=== PATIENT | male | born 1955 | race Caucasian/White ===

== ENCOUNTER 2021-02-10 20:09 | Inpatient (IN) | payer MEDICARE ==
[~2021-02-10] VITALS: Ht 190.5 cm; Wt 132.8 kg
[~2021-02-10 20:09] MED LIST: ALDACTAZIDE 251 TAB PO; BUPROPION HYDR150 M4 PO; CARVEDILOL12.5 MG PO; COREG12.5 MG PO; COZAAR100 MG PO; DSS100 MG PO; FERROUS SULFATE65 MG PO; LASIX 20MG TABL20 MG PO; METFORMIN500 MG PO; MULTI VITAMINS1 TAB PO; MULTIPLE VITAMI1 CAP PO; NORVASC 5MG5 MG/TAB PO; OMEGA 31000 MG; OMEPRAZOLE D/R20 MG PO; PERCOCET 325 MG1 TA2 PO; PERCOCET 325 MG1 TAB PO; POTASSIUM CL 220 MEQ PO; PRILOSEC 20MG20 MG PO; PROZAC 20MG20 MG PO; PROZAC10 MG PO; WELLBUTRIN XL150 M1 PO
[2021-02-11] VITALS (616 sets, daily range): BP systolic 120–149; BP diastolic 65–93; PULSE 76–98; TEMP 98.2–98.8; O2SAT 81–100
--- NOTE | 2021-02-11 01:15 | NUR ---
Pt arrived to ICU room 8 via cart with EMS. Pt transferred from the cart to the ICU bed with the assistance of 4. Pt repositioned in the bed and he denies needs. Call light within reach.
[2021-02-11] MEDS ORDERED: BETAPACE 80MG80 MG PO (02:32)
[2021-02-11] MEDS ORDERED: XARELTO20 MG PO (02:32)
[2021-02-11] MEDS ORDERED: PRIL40 PO (02:33)
[2021-02-11] MEDS ORDERED: COLACE 100100 MG/CAP PO (02:33)
[2021-02-11] MEDS ORDERED: MELATONIN5 M1 SL (02:33)
[2021-02-11] MEDS ORDERED: FLOMAX 0.40.4 MG/CAP PO (02:33)
[2021-02-11 02:38] LABS: HEMATOCRIT 37.3 % (42.0-52.0); HEMOGLOBIN 11.8 g/dl (13.5-18.0); MEAN CELL VOLUME 95 fl (80.0-100.0); MEAN CORPUSCULAR HEMOGLOBIN 30 pg (27.0-31.0); MEAN CORPUSCULAR HGB CONC 32 g/dl (33.0-37.0); MEAN PLATELET VOLUME 12.4 fl (7.4-10.4); PLATELET COUNT 114 K/mm3 (130-400); RED BLOOD COUNT 3.93 M/mm3 (4.20-5.60); REDCELL DISTRIBUTION WIDTH-CV 12.7 % (11.5-14.5)
[2021-02-11 02:54] LABS: ALANINE AMINOTRANSFERASE 15 U/L (4-49); ALBUMIN 3.2 gm/dL (3.5-5.0); ALKALINE PHOSPHATASE 97 U/L (50-136); ANION GAP 6 mmol/L (7-16); AST,SGOT 35 U/L (15-37); BILIRUBIN,TOTAL 0.6 mg/dL (0.0-1.0); BLOOD UREA NITROGEN 18 mg/dL (9-20); CALCIUM 10.5 mg/dL (8.4-10.2); CARBON DIOXIDE 30 mmol/L (22-30); CHLORIDE 106 mmol/L (98-107); CREATININE, serum 1.09 (0.66-1.25); GLUCOSE 114 mg/dL (74-106); MAGNESIUM 1.8 mg/dL (1.6-2.3); SODIUM 142 mmol/L (137-145); TOTAL PROTEIN 8.5 gm/dL (6.4-8.2)
[2021-02-11 02:55] LABS: LYMPHOCYTE 2 % (20.0-51.0); NEUTROPHILS 98 % (42.0-75.2)
[2021-02-11 02:56] LABS: HYPOCHROMIA 2+; PLATELET ESTIMATE DECREASED (NORMAL)
[2021-02-11 02:58] LABS: ALCOHOL(ethanol),MEDICAL < 10 mg/dL
[2021-02-11 03:07] LABS: TROPONIN-I < 0.012 ng/mL (0.000-0.035)
[2021-02-11 03:39] LABS: COLLECTION METHOD IN
[2021-02-11 03:45] LABS: MUCOUS Present /lpf; PH 6 (5-8); SQUAMOUS EPITHELIAL 0-2 /hpf; URINE APPEARANCE Clear; URINE BACTERIA None Seen /hpf; URINE BILIRUBIN Negative (NEGATIVE); URINE BLOOD 3+ (NEGATIVE); URINE COLOR Yellow; URINE GLUCOSE Negative (NEGATIVE); URINE KETONE Negative (NEGATIVE); URINE LEUKOCYTE ESTERASE 1+ (NEGATIVE); URINE NITRATE Negative (NEGATIVE); URINE PROTEIN(semi-quant) Negative (NEGATIVE); URINE RBC 20-50 /hpf; URINE UROBILINOGEN Negative (NEGATIVE)
--- NOTE | 2021-02-11 06:33 | NUR ---
Vancomycin Initial Dosing Pharmacy Note Ordering provider: Yuko Kamara E., DO Indication/duration: Empiric coverage, acute respiratory failure Relevant comorbidities: Numerous co-morbidities, obesity LABS: eCrCl > 100 mL/min Recommendation: Loading dose: 2 grams given on admission Maintenance dose: 1.5 grams every 12 hours starting 5 hours after load due to patient's weight Trough goal: 15-20 ug/mL Pharmacy will continue to follow.
--- NOTE | 2021-02-11 07:27 | NUR ---
Bedside shift report given to PERRI Rosas.
[2021-02-11 10:10] LABS: ARTERIAL BLD GAS O2 SATURATION 93.2 % (92-100); ARTERIAL BLD GAS TCO2 CT 27.1; ARTERIAL BLOOD GAS BASE EXCESS 0.9 (-2-2); ARTERIAL BLOOD GAS HCO3 25.8 meq/L (22-26); ARTERIAL BLOOD GAS pH 7.41 (7.35-7.45)
--- NOTE | 2021-02-11 16:14 | NUR ---
The patient is a PUI. Dry Cure Worker contacted the patient's daughter, Eli #[phone] to complete intake. The patient lives alone in [place]. The patient's son and [id number] live nearby. The patient has a motorized wheelchair and walker. The patient recently left (last Tuesday) post acute rehab at [facility]. The patient does not have advanced directives in the EMR but Eli states they are complete and designate her. Eli to fax DPOA-HC to the ICU fax. The patient's nurse knows to check for the fax. The plan is for the patient to go to post acute rehab. Eli would like to send referrals to [facility] and [facility]. She states that [facility] has declined in the past. Referrals sent. Eli states that they would consider transitioning to LTC. SW discussed applying for Medicaid. The patient owns land and they think he would not qualify. Insurance Advisor will continue to follow to ensure the safest discharge disposition. Discharge disposition: SNF. Referrals sent to [facility] and [facility]. Awaiting Screens.
[2021-02-11 18:37] LABS: PROCALCITONIN 0.06 ng/mL (0.00-0.09)
[2021-02-11 18:42] LABS: FOLATE (FOLIC ACID) 11.2 ng/mL (7.0-31.4)
--- NOTE | 2021-02-11 21:20 | NUR ---
Assessment complete and charted. Patient on 4 liters nasal cannula. Pupils unequal and reactive. Denies needs. Call light in reach. Held colace for diarrhea.
--- NOTE | 2021-02-11 21:30 | NUR ---
Report called to PERRI Yip
--- NOTE | 2021-02-11 21:45 | NUR ---
Patient transferred to medical floor.
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
[2021-02-12 04:38] VITALS: BP 121/85; PULSE 75; TEMP 97.4
--- NOTE | 2021-02-12 06:12 | NUR ---
Patient seemed less confused this morning. He is currently on 4L and oxygen saturation is the high 90's. He has no complaints.
[2021-02-12 06:35] LABS: BASO % 0.1 % (0.0-2.0); GRAN # 5.9 (1.4-6.5); GRAN % 77.2 % (42.2-75.2); HEMOGLOBIN 11.2 g/dl (13.5-18.0); LYMPH # 0.7 (1.2-3.4); LYMPH % 9.2 % (20.0-51.0); MEAN CELL VOLUME 95 fl (80.0-100.0); MEAN CORPUSCULAR HEMOGLOBIN 30 pg (27.0-31.0); MEAN CORPUSCULAR HGB CONC 32 g/dl (33.0-37.0); MEAN PLATELET VOLUME 11.7 fl (7.4-10.4); MONO % 13.2 % (1.7-9.3)
[2021-02-12 06:53] LABS: ALBUMIN 2.9 gm/dL (3.5-5.0); BILIRUBIN,TOTAL 0.6 mg/dL (0.0-1.0); CALCIUM 10.5 mg/dL (8.4-10.2); CREATININE, serum 0.72 (0.66-1.25); POTASSIUM 3.4 mmol/L (3.4-5.0); TOTAL PROTEIN 7.6 gm/dL (6.4-8.2)
[2021-02-12 07:52] LABS: HEMATOCRIT 35.1 % (42.0-52.0)
[2021-02-12 07:53] LABS: PLATELET COUNT 115 K/mm3 (130-400)
[2021-02-12 08:00] VITALS: BP 155/93; PULSE 92; TEMP 97.4
--- NOTE | 2021-02-12 08:28 | NUR ---
PATIENT AM MEDICATIONS GIVEN. PHYSICAL THERAPIST IN ROOM WITH PATIENT ASSISTING THEM TO THE COMMODE. PATIENT REPORTING GENERALIZED BODY PAIN AND IS REQUESTING PAIN MEDICATION. OPEN AREA ON OVER COCCYX. DESENEX POWDER APPLIED TO KEO AREA. WILL CONTINUE TO MONITOR.
--- NOTE | 2021-02-12 10:55 | NUR ---
AM SHIFT ASSESSMENT COMPLETED AT THIS TIME. PRN PO TYLENOL GIVEN FOR GENERALIZED BODY PAIN. IV ANTIBIOTICS INFUSING. WILL CONTINUE TO MONITOR.
[2021-02-12 12:06] VITALS: BP 121/76; PULSE 77; TEMP 97.9
--- NOTE | 2021-02-12 15:55 | NUR ---
LEFT AC INT DISCONTINUED DUE TO LEAKING. TIP INTACT. PATIENT TOLERATED WELL. PATIENT DENYING PAIN AT THIS TIME. CALL LIGHT IN REACH. BED ALARM ON.
[2021-02-12 16:00] VITALS: BP 130/81; PULSE 76; TEMP 97.9
--- NOTE | 2021-02-12 16:21 | NUR ---
went back to see patient three times and was unavailble all three times
--- NOTE | 2021-02-12 16:41 | NUR ---
[facility] Consultant followed up with [facility] Both declined referral. [facility] cannot take admissions at this time due to a positive COVID in the building. SW followed up with patient's daughter, Eli who is agreeable to have referrals sent to [facility], and [facility].
--- NOTE | 2021-02-12 18:31 | NUR ---
PATIENT RESTING IN ROOM. WILL REPORT OFF TO ONCOMING NURSE.
[2021-02-12 19:15] VITALS: BP 117/72; PULSE 76; TEMP 97.8
--- NOTE | 2021-02-12 21:29 | NUR ---
PT SETTING UP IN BED WATCHING TV. RATES HEADACHE A 5/10, TYL GIVEN ALONG W PM MEDS. IV FLUSHED. ASSESSMENT AND POC DISCUSSED. PT V/U. NEEDS MET
--- NOTE | 2021-02-12 21:36 | NUR ---
UPDATED PT DAUGHTER SHRUTI ON PT STATUS. WILL STOP BY TO VISIT HIM TOMORROW.
[2021-02-12 23:35] VITALS: BP 117/75; PULSE 84; TEMP 97.9
[2021-02-13 04:01] VITALS: BP 121/73; PULSE 72; TEMP 97.8
--- NOTE | 2021-02-13 05:02 | NUR ---
PT RESTED THROUGH MOST OF THE NIGHT DID HAVE SOME INTERMITTENT CONFUSION. NPO NOW FOR TEST THIS AM, ANTICIPATE LP AND THORACENTES. IV ANTIBOTIC/PO MED GIVEN W SIP THIS AM. NEEDS MET.
[2021-02-13 06:24] LABS: EOS % 0.2 % (0-4.0); GRAN # 5.2 (1.4-6.5); GRAN % 79.6 % (42.2-75.2); HEMOGLOBIN 11.6 g/dl (13.5-18.0); LYMPH # 0.5 (1.2-3.4); LYMPH % 8.3 % (20.0-51.0); MEAN CELL VOLUME 95 fl (80.0-100.0); MEAN CORPUSCULAR HEMOGLOBIN 30 pg (27.0-31.0); MEAN CORPUSCULAR HGB CONC 32 g/dl (33.0-37.0); MEAN PLATELET VOLUME 12.2 fl (7.4-10.4); MONO # 0.8 (0.1-0.6); MONO % 11.6 % (1.7-9.3); PLATELET COUNT 91 K/mm3 (130-400); RED BLOOD COUNT 3.81 M/mm3 (4.20-5.60); REDCELL DISTRIBUTION WIDTH-CV 12.9 % (11.5-14.5)
[2021-02-13 06:29] LABS: HEMATOCRIT 36.3 % (42.0-52.0)
[2021-02-13 06:31] LABS: CALCIUM 10.6 mg/dL (8.4-10.2); CREATININE, serum 0.67 (0.66-1.25); POTASSIUM 3.9 mmol/L (3.4-5.0)
[2021-02-13 06:38] LABS: INR 1.2 (0.8-3.0); PROTHROMBIN TIME 13.6 SECONDS (9.7-12.8)
--- NOTE | 2021-02-13 06:40 | NUR ---
appears to be sleeping, bedside shift report received from PERRI lópez
--- NOTE | 2021-02-13 08:00 | NUR ---
appears to be sleeping, awakens easily and is alert and oreinted this am times 3, full assessment completed, see interventions for further info, has desitin to anant and it appears dry at this time, will complete hygiene in a short while, have ordered his breakfast as the one he has is now cold, he denies needs, cardiopulmonary in to complete breathing treatment
[2021-02-13 08:05] VITALS: BP 123/74; PULSE 75; TEMP 98.1
--- NOTE | 2021-02-13 09:29 | NUR ---
Dr Martinez and care team was in to see patient, he was assisted up to bathroom and had bowel movement, now radiologist in to perform thoracentesis
--- NOTE | 2021-02-13 10:15 | NUR ---
thoracentesis completed and he tolerated well, he is sitting up on side of bed, am hygiene provided, then assisted back into bed and will now have breakfast, denies other needs
[2021-02-13 10:45] LABS: GLUCOSE,PLEURAL FLUID 122 mg/dL; TOTAL PROTEIN,PLEURAL FLUID 2.8 gm/dL
[2021-02-13 10:49] LABS: PLEURAL FLUID RBC 16000 /mm3 (0-0); PLEURAL FLUID WBC 710 /mm3
[2021-02-13 10:56] LABS: PLEURAL FLUID APPEARANCE CLOUDY; PLEURAL FLUID COLOR AMBER
--- NOTE | 2021-02-13 11:43 | NUR ---
physical therapy in and worked with patient and he is up in recliner and ready for lunch
--- NOTE | 2021-02-13 12:07 | NUR ---
back into bed and AIV will start PICC
--- NOTE | 2021-02-13 12:46 | NUR ---
he is just mpw sitting up in bed eating lunch, AIV service nurse will return and place PICC when he is finished
[2021-02-13 12:51] VITALS: BP 125/75; PULSE 75; TEMP 98
--- NOTE | 2021-02-13 13:45 | NUR ---
PICC has been placed with chest xray confirmation and good blood return, Vancomycin started
--- NOTE | 2021-02-13 15:06 | NUR ---
[employer] faxed referrals to [facility], [facility], and [facility]. SW contacted each facility regarding referral. Nuvia from [facility] reports they will not be able to review the referral until Tuesday.
--- NOTE | 2021-02-13 15:23 | NUR ---
to CT per WC
--- NOTE | 2021-02-13 16:00 | NUR ---
returned from CT scan per WC, assisted up to bathroom and had large semi formed bronw bowel movement, assisted then to bed, has open areas to both side of buttocks and pink aquafoam dressing placed, denies needs, is talking about things I don't understand at this time but is oriented times 3, speech therapy in to work with patient
[2021-02-13 16:17] VITALS: BP 131/72; PULSE 74; TEMP 97.4
--- NOTE | 2021-02-13 18:44 | NUR ---
bedside shift report given to PERRI Buckley
[2021-02-13 20:41] VITALS: BP 119/77; PULSE 69; TEMP 97.4
[2021-02-14] VITALS (7 sets, daily range): BP systolic 106–118; BP diastolic 60–90; PULSE 51–76; TEMP 97.2–97.7
--- NOTE | 2021-02-14 04:37 | NUR ---
Pt was up most of the night watching tv. rested periodically without incident. victor cath remains in place. Rt upper picc. Neuro intact. Remains on contact precautions. Needs met.
[2021-02-14 06:13] LABS: BASO % 0.3 % (0.0-2.0); EOS # 0.3 (0.0-0.7); EOS % 3.7 % (0-4.0); GRAN # 4.5 (1.4-6.5); GRAN % 67.2 % (42.2-75.2); HEMOGLOBIN 11.3 g/dl (13.5-18.0); LYMPH # 0.9 (1.2-3.4); LYMPH % 13.5 % (20.0-51.0); MEAN CELL VOLUME 94 fl (80.0-100.0); MEAN CORPUSCULAR HEMOGLOBIN 30 pg (27.0-31.0); MEAN CORPUSCULAR HGB CONC 32 g/dl (33.0-37.0); MEAN PLATELET VOLUME 11.8 fl (7.4-10.4); PLATELET COUNT 127 K/mm3 (130-400); RED BLOOD COUNT 3.77 M/mm3 (4.20-5.60); REDCELL DISTRIBUTION WIDTH-CV 12.8 % (11.5-14.5)
[2021-02-14 06:23] LABS: ALBUMIN 2.8 gm/dL (3.5-5.0); BILIRUBIN,TOTAL 0.6 mg/dL (0.0-1.0); CALCIUM 10.1 mg/dL (8.4-10.2); CREATININE, serum 0.64 (0.66-1.25); POTASSIUM 3.8 mmol/L (3.4-5.0); TOTAL PROTEIN 7.1 gm/dL (6.4-8.2)
[2021-02-14 06:25] LABS: HEMATOCRIT 35.5 % (42.0-52.0)
--- NOTE | 2021-02-14 20:00 | NUR ---
Assessment complete. Patient is alert and oriented; HR irregular with normal heart sounds; Lungs clear in upper lobes and fine crackles in bases. Right thora site covered with bandaid with no signs of bleeding. Bilateral lower extremities are discolored and excoriated and are edematous. A stage II pressure ulcer is noted on patient's coccyx and a new mepilex is applied. Patient walks to bathroom with SBA and walker. Santos in place, draining yellow urine. Patient has no complaints of pain. Will continue to monitor.
[2021-02-15 02:59] VITALS: BP 114/66; PULSE 69; TEMP 97.7
[2021-02-15 06:01] LABS: BASO # 0.1 (0.0-0.2); BASO % 0.7 % (0.0-2.0); EOS # 0.8 (0.0-0.7); EOS % 11.1 % (0-4.0); GRAN # 4.1 (1.4-6.5); LYMPH # 1.2 (1.2-3.4); MEAN CELL VOLUME 95 fl (80.0-100.0); MEAN CORPUSCULAR HEMOGLOBIN 29 pg (27.0-31.0); MEAN CORPUSCULAR HGB CONC 31 g/dl (33.0-37.0); MEAN PLATELET VOLUME 11.8 fl (7.4-10.4); MONO # 1.2 (0.1-0.6); MONO % 15.8 % (1.7-9.3); RED BLOOD COUNT 3.74 M/mm3 (4.20-5.60); REDCELL DISTRIBUTION WIDTH-CV 12.8 % (11.5-14.5)
[2021-02-15 06:08] LABS: HEMATOCRIT 35.5 % (42.0-52.0)
[2021-02-15 06:10] LABS: CALCIUM 9.9 mg/dL (8.4-10.2); CREATININE, serum 0.66 (0.66-1.25); MAGNESIUM 1.6 mg/dL (1.6-2.3); POTASSIUM 3.8 mmol/L (3.4-5.0)
[2021-02-15 06:32] LABS: PLATELET COUNT 94 K/mm3 (130-400)
[2021-02-15 07:22] VITALS: BP 112/67; PULSE 78; TEMP 98
--- NOTE | 2021-02-15 08:37 | NUR ---
Patient drowsy this morning, breakfast at bedside, he stated he will take medications now and will eat later after he sleeps a little longer. Vital signs are stable, heart sounds normal with regular rate and rhythm. Patient denies SOB or any pain. Hand engraver seals equal bilaterally, lower extremities exhibit redness and warmth, a normal finding for patient. 1+ pitting edema. Blood sugar level 72, sliding scale insulin not indicated. Patient denies any questions or concerns at this time, will continue to monitor.
[2021-02-15 11:36] VITALS: BP 110/55; PULSE 63; TEMP 98
[2021-02-15 16:59] VITALS: BP 124/68; PULSE 75; TEMP 98.1
[2021-02-15 18:52] VITALS: BP 119/64; PULSE 70; TEMP 97.4
--- NOTE | 2021-02-15 19:00 | NUR ---
Received report from Henok. Patient awake in bed. He states that he thinks his victor catheter is leaking. Upon checking, his chucks are wet but victor catheter still intact and urine flowing good in the tubing. Changed chucks and repositioned patient. Will observe if it will happen again.
--- NOTE | 2021-02-15 21:05 | NUR ---
Patient's blood glucose is 85mg/dl. Provided him with sandwich box. He is on O2 at 2lpm via NC. He denies pain. Santos catheter draining clear, yellow urine. He is alert and oriented.
[2021-02-15 23:16] VITALS: BP 106/62; PULSE 71; TEMP 97.4
--- NOTE | 2021-02-16 00:32 | NUR ---
Patient called saying he thinks he's not getting enough oxygen. He is currently at 2L via nasal cannula. SpO2 at 91-92%. RT says patient will have breathing treatment at 2am and that he was at O2 4lpm yesterday. Increased O2 to 3lpm and after few minutes he states he feels much better. SPO2 at 95%.
[2021-02-16 03:05] VITALS: BP 120/67; PULSE 67; TEMP 97.5
--- NOTE | 2021-02-16 06:24 | NUR ---
Maintained patient on O2 at 3lpm via NC. He was able to sleep after his breathing treatment. Santos catheter draining adequate urine output. No bowel movement last night.
--- NOTE | 2021-02-16 07:10 | NUR ---
Report with PERRI Westfall. Pt resting in bed with eyes closed, resp even and unlabored. Call light in reach.
--- NOTE | 2021-02-16 08:00 | NUR ---
Assessment complete. Pt resting in bed, awake but drowsy, oriented x 3, denies pain but reports slight ache in abdomen. Edema to bilat lower ext. O2 at 3 L/min via NC. PICC to right upper arm without s/s of complications. Pt reports feeling tired, denies further needs. Call light in reach.
[2021-02-16 08:06] LABS: BASO # 0.1 (0.0-0.2); BASO % 0.9 % (0.0-2.0); EOS # 0.9 (0.0-0.7); EOS % 13.1 % (0-4.0); GRAN # 4.1 (1.4-6.5); GRAN % 58.1 % (42.2-75.2); HEMOGLOBIN 11.1 g/dl (13.5-18.0); LYMPH % 14.6 % (20.0-51.0); MEAN CELL VOLUME 94 fl (80.0-100.0); MEAN CORPUSCULAR HEMOGLOBIN 29 pg (27.0-31.0); MEAN CORPUSCULAR HGB CONC 31 g/dl (33.0-37.0); MEAN PLATELET VOLUME 11.8 fl (7.4-10.4); MONO # 0.9 (0.1-0.6); MONO % 12.9 % (1.7-9.3); RED BLOOD COUNT 3.77 M/mm3 (4.20-5.60); REDCELL DISTRIBUTION WIDTH-CV 12.8 % (11.5-14.5)
[2021-02-16 08:17] LABS: CALCIUM 10.2 mg/dL (8.4-10.2); CREATININE, serum 0.67 (0.66-1.25); POTASSIUM 3.8 mmol/L (3.4-5.0)
[2021-02-16 08:20] LABS: HEMATOCRIT 35.5 % (42.0-52.0)
[2021-02-16 08:21] LABS: PLATELET COUNT 98 K/mm3 (130-400)
--- NOTE | 2021-02-16 08:57 | NUR ---
Ruchi from [facility] reports they cannot meet the patient's needs.
[2021-02-16 09:16] VITALS: BP 128/76; PULSE 78; TEMP 97.9
[2021-02-16 12:10] VITALS: BP 132/78; PULSE 68; TEMP 97.5
--- NOTE | 2021-02-16 13:34 | NUR ---
Pt. pleasant, sitting upright in bed. Explains to nurse he is feeling discomfort and mild pain to epigastric region. Pt. states "will wait to see if it goes away". Nurse informed pt. to call for any needs. Call light within reach. Will continue to monitor.
--- NOTE | 2021-02-16 14:36 | NUR ---
The PA notified SW that the patient may be able to d/c tomorrow. GRANT contacted [facility] to submit for pre-auth. [facility] reports that they cannot find the patient and it looks like they do not manage the patient's plan. She states that some plans are not managed by [facility] yet. GRANT attempted to follow up with Yesenia at [facility] about referral. GRANT left her a voicemail and faxed over updates. GRANT contacted Nuvia at [facility] in [place]. Nuvia reports that their DON is now reviewing the referral to make sure they can meet the patient's needs.
--- NOTE | 2021-02-16 15:32 | NUR ---
SW contacted and updated the patient's daughter, Eli. Eli was agreeable for GRANT to send referrals to [facility] and [facility]. GRANT contacted and faxed a referral to both facilities. Awaiting screens.
[2021-02-16 16:00] VITALS: BP 120/70; PULSE 71; TEMP 97.5
--- NOTE | 2021-02-16 18:38 | NUR ---
Pt. sitting in bed, alert and oriented x4, currently states he is not feeling any pain. SCD's on patient. Santos catheter DC'd, pt. tolerated it well w/o complications expressed. Pt. states "he would like more to eat", nurse explained heart healthy diet and carb limitations. Pt. confirms and understands diet. Pt. expresses no additional needs at this time. Call light within reach. Nurse reminded pt. to call to transfer.
[2021-02-16 21:32] VITALS: BP 111/67; PULSE 68; TEMP 97.6
[2021-02-16 23:52] VITALS: BP 114/67; PULSE 62; TEMP 97.7
--- NOTE | 2021-02-17 01:14 | NUR ---
2100- ASSESSMENT COMPLETE. PT C/O ENRIQUEZ, TYL GIVEN. PM MEDS REVIEWED. RATES PAIN /. RT UPPER PICC FLUSHED, GOOD BLOOD RETURN. TELE, O2. LEESA PEREZ TODAY, URINAL. POC DISCUSSED. NEEDS MET.
[2021-02-17 03:39] VITALS: BP 111/56; PULSE 67; TEMP 97.2
--- NOTE | 2021-02-17 05:30 | NUR ---
RESTEDT THROUGH THE NIGHT WO INCIDENT.
[2021-02-17] MEDS ORDERED: VITAMIN D31000 I1 PO (07:50)
[2021-02-17 08:16] LABS: BASO % 0.6 % (0.0-2.0); EOS # 0.9 (0.0-0.7); EOS % 12.2 % (0-4.0); GRAN % 57.1 % (42.2-75.2); HEMATOCRIT 37.5 % (42.0-52.0); HEMOGLOBIN 11.4 g/dl (13.5-18.0); LYMPH # 1.1 (1.2-3.4); LYMPH % 15.9 % (20.0-51.0); MEAN CELL VOLUME 97 fl (80.0-100.0); MEAN CORPUSCULAR HEMOGLOBIN 29 pg (27.0-31.0); MEAN CORPUSCULAR HGB CONC 30 g/dl (33.0-37.0); MEAN PLATELET VOLUME 11.4 fl (7.4-10.4); MONO % 13.9 % (1.7-9.3); PLATELET COUNT 105 K/mm3 (130-400); RED BLOOD COUNT 3.88 M/mm3 (4.20-5.60); REDCELL DISTRIBUTION WIDTH-CV 12.7 % (11.5-14.5)
[2021-02-17 08:29] LABS: CALCIUM 10.6 mg/dL (8.4-10.2); CREATININE, serum 0.79 (0.66-1.25); POTASSIUM 4.1 mmol/L (3.4-5.0)
[2021-02-17 08:31] VITALS: BP 129/66; PULSE 75; TEMP 98.4
--- NOTE | 2021-02-17 09:46 | NUR ---
Patient alert and oriented, breakfast arrived but stated will eat after PT works with him. Patient able to turn self and somewhat boost himself in bed, exhibiting some weakness in lower extremities. Patient has Stage II pressure ulcer on coccyx, with dressing on it. Patient's heart sounds regular rate and rhythm. Patient experienced SOB on exertion when PT tried to get him up. Breath sounds clear upon auscultating. Denies pain and discomfort at this time, no questions and concerns, waiting on placement, will continue to monitor.
[2021-02-17 12:43] VITALS: BP 130/65; PULSE 77; TEMP 98.3
--- NOTE | 2021-02-17 15:23 | NUR ---
Yesenia, at [facility], contacted GRANT for more questions. GRANT answered Yesenia's questions. Yesenia requested a copy of the patient's insurance card. GRANT faxed the card to Yesenia. Arlyn, at [facility], contacted GRANT with more questions about the patient. GARNT answered her questions. Arlyn plans to update her team and states that she will contact GRANT later with an answer.
--- NOTE | 2021-02-17 15:51 | NUR ---
Yesenia, at [facility], reports that they are able to accept the patient for a skilled stay tomorrow and would be able to pick him up between [id number]. GRANT contacted and updated the patient's daughter, Eli. Eli is in agreement with the patient going to [facility] [place]. GRANT updated the patient. He is also agreeable to going to [facility] [place]. GRANT presented and read the IM form outloud to the patient. The patient verbalized understanding and gave SW approval to sign the form on his behalf. GRANT updated the patient's PA. GRANT attempted to update Dhara at [facility]. GRANT left her a voicemail. GRANT updated Nuvia at [facility].
[2021-02-17] MEDS ORDERED: AMPICILLIN AND1 PD3 IV (16:02)
[2021-02-17 16:17] VITALS: BP 97/53; PULSE 60; TEMP 98.5
--- NOTE | 2021-02-17 17:36 | NUR ---
Patient resting in bed. VSS IV CDI. Care provided by Jem, student nurse. Call light within reach
--- NOTE | 2021-02-17 17:55 | NUR ---
Patient resting in bed with tv on. Rapid COVID swab resulted negative. VSS, 3L NC O2, no reported SOB. PICC SUZETTE CDI. Denies pain and discomfort, no concerns at this time. Patient may discharge tomorrow. Call light within reach.
[2021-02-17 19:13] VITALS: BP 105/71; PULSE 64; TEMP 98.1
--- NOTE | 2021-02-17 21:42 | NUR ---
PT ALERT AND OX4 ONCE AWAKE. FEELING SLEEPY THIS EVENING. HAS NOT BEEN SLEEPING MUCH PER PT LAST FEW NIGHTS. ASSESSMENT AND POC DISCUSSED. PM MEDS GIVEN ALONG W MELATONIN. USING URINAL. CALL LIGHT WI REACH. BLOOD SUGARS REMAINS STABLE. ANTCIPATES DC TOMORROW TO [facility]. NEEDS MET.
[2021-02-17 23:29] VITALS: BP 116/64; PULSE 62; TEMP 97.2
[2021-02-18 04:24] VITALS: BP 117/73; PULSE 64; TEMP 97.1
--- NOTE | 2021-02-18 05:38 | NUR ---
RESTED THROUGH THE NIGHT WO INCIDENT. NEEDS MET.
[2021-02-18 07:23] LABS: CALCIUM 10.4 mg/dL (8.4-10.2); CREATININE, serum 0.82 (0.66-1.25); MAGNESIUM 2.1 mg/dL (1.6-2.3); POTASSIUM 4.2 mmol/L (3.4-5.0)
[2021-02-18 07:39] LABS: BASO % 0.6 % (0.0-2.0); EOS # 0.7 (0.0-0.7); EOS % 10.6 % (0-4.0); GRAN # 4.1 (1.4-6.5); GRAN % 61.5 % (42.2-75.2); HEMOGLOBIN 10.1 g/dl (13.5-18.0); LYMPH % 14.7 % (20.0-51.0); MEAN CELL VOLUME 96 fl (80.0-100.0); MEAN CORPUSCULAR HEMOGLOBIN 30 pg (27.0-31.0); MEAN CORPUSCULAR HGB CONC 32 g/dl (33.0-37.0); MEAN PLATELET VOLUME 10.9 fl (7.4-10.4); MONO # 0.8 (0.1-0.6); MONO % 12.3 % (1.7-9.3); RED BLOOD COUNT 3.34 M/mm3 (4.20-5.60); REDCELL DISTRIBUTION WIDTH-CV 12.9 % (11.5-14.5)
[2021-02-18 07:43] LABS: PLATELET COUNT 101 K/mm3 (130-400)
[2021-02-18 08:26] VITALS: BP 121/70; PULSE 65; TEMP 97.5
--- NOTE | 2021-02-18 09:00 | NUR ---
Assessment complete. Pt sitting up in bed, A&O x 4, denies pain or c/o at this time. O2 at 3 L/min via NC. Stage II to coccyx with dressing CDI. PICC to right upper arm without s/s of complications. POC for discharge reviewed with pt. Call light in reach.
[2021-02-18] MEDS ORDERED: CUBICIN 500MG500 MG IV (10:12)
--- NOTE | 2021-02-18 11:11 | NUR ---
The patient is ready to d/c today. He will need IV Unasyn until 02/24. The frequency is every 6 hours. GRANT followed up with Viviane at [facility] to confirm that they are okay with his. Viviane reports that they would not be able to do every 6 hours and would need something at least twice a day. GRANT notified the clinical team. ID recommended IV Dapto, once a day. GRANT notified Viviane at [facility]. Viviane reports that they would be able to do the IV Dapto. The patient is to discharge today, 02/18, to [facility] for a skilled stay. Transportation was scheduled around [id number], via [place]. GRANT informed the patient, his RN, and the patient's daughter (Eli) over the phone. They were all agreeable to the time. No additional needs at this time.
--- NOTE | 2021-02-18 11:27 | NUR ---
Pt discharged to [facility] via WC accompanied NH staff. O2 in place. Discharge paperwork given to NH staff.
--- NOTE | 2021-02-18 11:36 | NUR ---
Called to give report to nurse at [facility], left message for call back.
== END 2021-02-18 11:45 | DRG 291 ==
LOC: ICU 20:09 → MEDICAL 02-11 21:16
PROVIDERS: Hospitalist; Internal Medicine Pulmonary Disease; Physician Assistant; Student in an Organized Health Care Education/Training Program; ADMIT Family Medicine
PROC: 02HV33Z Insertion of Infusion Device into Superior Vena Cava, Percutaneous Approach (ICD-10-PCS; principal; 2021-02-13)
PROC: 0W993ZZ Drainage of Right Pleural Cavity, Percutaneous Approach (ICD-10-PCS; 2021-02-13)
DX: I13.0 Hypertensive heart and chronic kidney disease with heart failure and stage 1 through stage 4 chronic kidney disease, or unspecified chronic kidney disease (principal); I50.33 Acute on chronic diastolic (congestive) heart failure; J96.01 Acute respiratory failure with hypoxia; G93.41 Metabolic encephalopathy; J18.9 Pneumonia, unspecified organism; I48.20 Chronic atrial fibrillation, unspecified; N39.0 Urinary tract infection, site not specified; L97.929 Non-pressure chronic ulcer of unspecified part of left lower leg with unspecified severity; L97.919 Non-pressure chronic ulcer of unspecified part of right lower leg with unspecified severity; N17.9 Acute kidney failure, unspecified; R78.81 Bacteremia; E87.3 Alkalosis; Z68.41 Body mass index [BMI] 40.0-44.9, adult; E66.01 Morbid (severe) obesity due to excess calories; N18.9 Chronic kidney disease, unspecified; G47.33 Obstructive sleep apnea (adult) (pediatric); J44.9 Chronic obstructive pulmonary disease, unspecified; F31.9 Bipolar disorder, unspecified; E78.5 Hyperlipidemia, unspecified; K21.9 Gastro-esophageal reflux disease without esophagitis; B95.2 Enterococcus as the cause of diseases classified elsewhere; N40.0 Benign prostatic hyperplasia without lower urinary tract symptoms; I27.20 Pulmonary hypertension, unspecified; K57.90 Diverticulosis of intestine, part unspecified, without perforation or abscess without bleeding; E11.22 Type 2 diabetes mellitus with diabetic chronic kidney disease; D69.6 Thrombocytopenia, unspecified; M54.9 Dorsalgia, unspecified; J32.9 Chronic sinusitis, unspecified; E21.0 Primary hyperparathyroidism; G89.29 Other chronic pain; G47.00 Insomnia, unspecified; B37.2 Candidiasis of skin and nail; L89.152 Pressure ulcer of sacral region, stage 2; Z20.822 Contact with and (suspected) exposure to COVID-19; Z79.01 Long term (current) use of anticoagulants
CPT/HCPCS: 99223-AI; 99232-AI; 99233-AI; 99239; C1751; J0295; J0692; J1100; J1450; J1940; J3370; J7050; Q9967

== ENCOUNTER → 2021-06-08 | Outpatient (CLI) | payer MEDICARE, MEDICAID ==
[~2021-06-08] MED LIST changes: +AMPICILLIN AND1 PD3 IV; +BETAPACE 80MG80 MG PO; +COLACE 100100 MG/CAP PO; +CUBICIN 500MG500 MG IV; +FLOMAX 0.40.4 MG/CAP PO; +MELATONIN5 M1 SL; +PRIL40 PO; +VITAMIN D31000 I1 PO; +XARELTO20 MG PO
[2021-06-08 11:36] LABS: ARTERIAL BLD GAS O2 SATURATION 95.7 % (92-100); ARTERIAL BLD GAS TCO2 CT 25.1; ARTERIAL BLOOD GAS BASE EXCESS -0.3 (-2-2); ARTERIAL BLOOD GAS HCO3 23.9 meq/L (22-26); ARTERIAL BLOOD GAS PCO2 37.6 mmHg (35-45); ARTERIAL BLOOD GAS PO2 79.1 mmHg (80-100); ARTERIAL BLOOD GAS pH 7.42 (7.35-7.45)
== END ==
LOC: COL.PUL 11:09
PROVIDERS: Internal Medicine Pulmonary Disease
DX: J96.11 Chronic respiratory failure with hypoxia (principal)

== ENCOUNTER 2022-01-08 17:17 | Emergency (ER) | payer MEDICARE, MEDICAID ==
[~2022-01-08] VITALS: Ht 190.5 cm; Wt 156.8 kg
[2022-01-08 17:34] VITALS: TEMP 98
[2022-01-08 18:00] LABS: BASO # 0.1 K/mm3 (0.0-0.2); BASO % 1.5 % (0.0-2.0); EOS # 0.7 K/mm3 (0.0-0.7); EOS % 9.2 % (0.0-4.0); GRAN # 3.7 K/mm3 (1.4-6.5); GRAN % 50.3 % (42.2-75.2); HEMATOCRIT 40.8 % (42.0-52.0); HEMOGLOBIN 13.3 g/dl (13.5-18.0); LYMPH # 1.5 K/mm3 (1.2-3.4); MEAN CELL VOLUME 86 fl (80.0-100.0); MEAN CORPUSCULAR HEMOGLOBIN 28 pg (27-31); MEAN CORPUSCULAR HGB CONC 33 g/dl (33.0-37.0); MEAN PLATELET VOLUME 11.9 fl (7.4-10.4); MONO # 1.3 K/mm3 (0.1-0.6); MONO % 17.7 % (1.7-9.3); RED BLOOD COUNT 4.72 M/mm3 (4.20-5.60); REDCELL DISTRIBUTION WIDTH-CV 14.8 % (11.5-14.5)
[2022-01-08 18:16] LABS: ALBUMIN 2.9 gm/dL (3.4-4.8); BILIRUBIN,TOTAL 0.8 mg/dL (0.2-1.2); CALCIUM 10.5 mg/dL (8.4-10.2); CREATININE, serum 1.53 mg/dL (0.72-1.25); POTASSIUM 4.9 mmol/L (3.5-4.5); TOTAL PROTEIN 8.3 gm/dL (6.2-8.1)
[2022-01-08 19:12] LABS: PLATELET COUNT 310 K/mm3 (130-400)
[2022-01-08 20:23] VITALS: BP 95/70; PULSE 66
== END 2022-01-08 20:23 | disposition home or self-care (01) ==
LOC: COL.ER 17:17
PROVIDERS: Emergency Medicine
DX: Z00.00 Encounter for general adult medical examination without abnormal findings (principal); E66.01 Morbid (severe) obesity due to excess calories; Z68.41 Body mass index [BMI] 40.0-44.9, adult; Z20.822 Contact with and (suspected) exposure to COVID-19